=== PATIENT | female | born 1930 | race Caucasian/White ===

== ENCOUNTER 2017-06-14 01:51 | Inpatient (IN) | payer OTHER, MEDICARE ==
[~2017-06-14] VITALS: Ht 162.6 cm; Wt 34.4 kg
[~2017-06-14 01:51] MED LIST: ALBIPROI INH; AMMO140TC TOP; ASPI81CH PO; ATEN50 PO; BUDE6HFA INH; CHOL10002 PO; CIPR500 PO; DOCUSATE; FLUNISOLIDE; FLUO20 PO; FOLI1 PO; GABA100 PO; GLIP10 PO; GLIP5 PO; HYDSUL200 PO; LAVAP17G PO; LISHYD1012 PO; MORP15ER PO; MULVITMINE PO; NORT10 PO; OMEP20ER PO; OXYC5 PO; PREDNISONE 10 MG PO; PYRI100 PO; SENN187 PO; SULF500 PO; SULF500A PO; [UNRECOGNIZED DRUG - OTHER]
[2017-06-14 02:18] LABS: PCO2 Arterial 61.8 mmHg (35-45); PO2 Arterial 65.9 mmHg (80-100); pH Blood Arterial 7.38 (7.35-7.45)
[2017-06-14 02:36] LABS: BASOPHILS ABSOLUTE AUTO 0.07 K/mm3 (0.00-0.23); BASOPHILS PERCENT AUTO 0 % (0-2); EOSINOPHILS ABSOLUTE AUTO 0.03 K/mm3 (0.00-0.68); EOSINOPHILS PERCENT AUTO 0 % (0-6); Hematocrit 30.7 % (33.0-51.0); Hemoglobin 9.3 g/dL (11.5-16.0); IMMATURE GRAN ABSOLUTE AUTO 0.16 K/mm3 (0.00-0.10); IMMATURE GRAN PERCENT AUTO 1 % (0-1); LYMPHOCYTES ABSOLUTE AUTO 0.52 K/mm3 (0.84-5.20); LYMPHOCYTES PERCENT AUTO 2 % (21-46); MONOCYTES ABSOLUTE AUTO 1.48 K/mm3 (0.16-1.47); MONOCYTES PERCENT AUTO 7 % (4-13); Mean Corpuscular HGB 31.4 pg (26.0-34.0); Mean Corpuscular HGB Conc 30.3 g/dL (31.5-36.5); Mean Corpuscular Volume 104 fL (80-100); NEUTROPHILS ABSOLUTE AUTO 19.97 K/mm3 (1.96-9.15); NEUTROPHILS PERCENT AUTO 90 % (41-73); RDW Coefficient Variation 13.1 % (11.7-14.2); RDW Standard Deviation 49.4 fL (35.1-46.3); Red Blood Cell Count 2.96 M/mm3 (3.80-5.20); White Blood Cell Count 22.23 K/mm3 (4.00-11.30)
[2017-06-14 02:49] LABS: Mean Platelet Volume 10.3 fL (9.1-12.4); Platelet Count 199 K/mm3 (150-400)
[2017-06-14 02:55] LABS: Influenza A Negative (NEGATIVE); Influenza B Negative (NEGATIVE)
[2017-06-14 03:03] LABS: Alanine Aminotransfer (ALT/SGP 33 U/L (12-78); Albumin, Blood 2.7 g/dL (3.4-5.0); Albumin/Globulin Ratio 0.9 (0.8-1.8); Alk Phos 68 U/L (50-136); Anion Gap 7 mmol/L (6-16); Aspartate Aminotrans (AST/SGOT 41 U/L (12-37); Bilirubin, Total 0.6 mg/dL (0.1-1.0); Blood Urea Nitrogen 14 mg/dL (8-24); Bun/Creatinine Ratio 37.2 (12.0-20.0); CO2, Blood 36 mmol/L (21-32); Calcium, Blood 8.5 mg/dL (8.5-10.1); Chloride, Blood 96 mmol/L (98-108); Creatinine, Blood 0.38 mg/dL (0.40-1.00); Globulin, Blood 3.1 g/dL (2.2-4.0); Glomerular Filtration Rate >60 (60-); Glucose, Blood 291 mg/dL (70-99); Magnesium, Blood 1.5 mg/dL (1.6-2.4); Potassium, Blood 3.7 mmol/L (3.5-5.5); Sodium, Blood 139 mmol/L (136-145); Total Protein, Blood 5.8 g/dL (6.4-8.2); Troponin I 0.021 ng/mL (0.000-0.040)
[2017-06-14] MEDS ORDERED: GABA300 PO (03:04)
[2017-06-14] MEDS ORDERED: LEVSOD75 PO (03:05)
[2017-06-14 03:23] LABS: Source, Urine Catheter
[2017-06-14 03:25] LABS: Appearance, Urine Turbid (Clear); Bilirubin, Urine 1+ (Neg); Blood, Urine 4+ (Neg); Color, Urine Orange (P-Yellow); Glucose Qualitative, Urine 4+ (Neg); Ketones, Urine 2+ (Neg); Leukocyte Esterase, Urine 3+ (Neg); Nitrite, Urine Pos (Neg); Protein, Urine 2+ (Neg); Specific Gravity, Urine 1.025 (1.003-1.022); Urobilinogen, Urine 1+ (Normal)
[2017-06-14 03:32] LABS: Amorphous Light (0-Heavy); Bacteria Many /hpf; Squamous Epithelial Cells Not Seen /hpf (Few); White Blood Cells, Urine TNTC /hpf (0-5); Yeast/Fungi Urine Many /hpf
[2017-06-14] MEDS ORDERED: ACET325 PO (13:47)
[2017-06-14] MEDS ORDERED: BISA10S PR (13:48)
[2017-06-14] MEDS ORDERED: DOCU100 PO (13:49)
[2017-06-14] MEDS ORDERED: Thera Tears1 EAC1 BOTHEYES (13:49)
[2017-06-14] MEDS ORDERED: CARB10OTL BOTHEARS (13:50)
[2017-06-14] MEDS ORDERED: Fleet Enema132 ML PR (13:52)
[2017-06-14] MEDS ORDERED: LORA.5 PO (13:52)
[2017-06-14] MEDS ORDERED: HYOS.125 SL (13:52)
[2017-06-14] MEDS ORDERED: Milk Of Ma400 MG/5 M PO (13:53)
[2017-06-14] MEDS ORDERED: MIRT15ST PO (13:54)
[2017-06-14] MEDS ORDERED: MORP20L SL (13:54)
[2017-06-14] MEDS ORDERED: OXYB5 PO (13:55)
[2017-06-14] MEDS ORDERED: HYDR1TAB94 PO (13:55)
[2017-06-15 09:47] LABS: Anion Gap 6 mmol/L (6-16); Blood Urea Nitrogen 16 mg/dL (8-24); CO2, Blood 31 mmol/L (21-32); Calcium, Blood 8.6 mg/dL (8.5-10.1); Chloride, Blood 104 mmol/L (98-108); Creatinine, Blood 0.33 mg/dL (0.40-1.00); Glomerular Filtration Rate >60 (60-); Glucose, Blood 237 mg/dL (70-99); Magnesium, Blood 2.1 mg/dL (1.6-2.4); Potassium, Blood 4.2 mmol/L (3.5-5.5); Sodium, Blood 141 mmol/L (136-145)
[2017-06-16] MEDS ORDERED: AZIT250 PO (12:14)
[2017-06-16] MEDS ORDERED: Ipratr-Albuterol3 ML INH (12:14)
== END 2017-06-16 16:32 | disposition hospice, home (50) | DRG 871 ==
LOC: ER 01:51 → PCU 03:39 → MEDS 05:40 → PCU 05:51 → MEDS 16:48 → ENPENDDIS 06-16 11:19 → MEDS 06-16 16:32
PROVIDERS: Emergency Medicine; Hospitalist
PROC: 3E0234Z Introduction of Serum, Toxoid and Vaccine into Muscle, Percutaneous Approach (ICD-10-PCS; principal; 2017-06-14)
DX: A41.9 Sepsis, unspecified organism (principal); J18.9 Pneumonia, unspecified organism; J96.21 Acute and chronic respiratory failure with hypoxia; N39.0 Urinary tract infection, site not specified; E11.9 Type 2 diabetes mellitus without complications; J44.0 Chronic obstructive pulmonary disease with (acute) lower respiratory infection; J84.10 Pulmonary fibrosis, unspecified; E83.42 Hypomagnesemia; B96.20 Unspecified Escherichia coli [E. coli] as the cause of diseases classified elsewhere; J44.1 Chronic obstructive pulmonary disease with (acute) exacerbation; R65.20 Severe sepsis without septic shock; B00.7 Disseminated herpesviral disease; E03.9 Hypothyroidism, unspecified; Z23 Encounter for immunization; Z66 Do not resuscitate; F43.10 Post-traumatic stress disorder, unspecified; K21.9 Gastro-esophageal reflux disease without esophagitis
CPT/HCPCS: 36415; 36600; 71045; 80048; 80053; 81001; 82803; 82947; 83605; 83735; 83880; 84484; 85025; 87040; 87077; 87086; 87186; 87804; 93005; 93010; 94640; 94760; 96365; 96367; 96368; 99285; J0456; J0696; J2405; J2920; J3475; J7030; J7050